=== PATIENT | female | born 1990 ===

== ENCOUNTER 2018-06-09 07:20 | Inpatient (IN) ==
[2018-06-11 07:54] VITALS: BP 120/62
== END 2018-06-11 14:25 | disposition home or self-care (01) | DRG 766 ==
LOC: N.LD 07:20 → N.OB 15:11
PROVIDERS: ADMIT Obstetrics & Gynecology; ATTEND Obstetrics & Gynecology
PROC: LDCSECT (ICD-10-PCS; 2018-06-09 12:00)

== ENCOUNTER 2020-11-06 07:41 | Inpatient (IN) ==
[2020-11-06 08:18] LABS: Basophils % 0.1 % (0.0-0.8); Eosinophils % 0.1 % (0.00-10.9); Immature Granulocytes % 0.5 %; Immature Granulocytes Absolute 0.08 #; Lymphocytes # 1.2 10*3/uL (1.4-4.0); Lymphocytes % 7.2 % (21.3-54.2); Mean Corpuscular HGB Conc 34.6 GM/DL (32-36); Mean Corpuscular Volume 79.8 FL (87-102); Mean Platelet Volume 8.8 FL (9.6-12.0); Monocytes % 5.9 % (1.7-12.7); Neutrophils % 86.2 % (38.7-73.9); Platelet Count 142 T/CUMM (130-400); Red Blood Count 3.26 MC/CUMM (3.8-5.5); Red Cell Distribution Width 13.8 % (9.3-17.3); White Blood Count 16.8 T/CUMM (4-12)
[2020-11-06 09:03] LABS: Bilirubin,Urine Negative (Negative); Blood, Urine Moderate mg/dL (Negative); Glucose,Urine (UA) 50 mg/dL (Negative); Ketones,Urine Negative (Negative); Mucus,Urine Occasional /LPF (Occasional); Nitrite,Urine Negative (Negative); Protein,Urine 100 MG/DL; RBC,Urine 67 /HPF (0-4); Squamous Epithelial Cell,Urine Occasional /HPF (0-10); Urine Appearance Slightly Hazy (Clear); Urine Color Amber (Yellow); Urine Specific Gravity 1.017 (1.001-1.035); WBC,Urine 8 /HPF (0-6)
[2020-11-06] MEDS: LACTATED RINGERS 1,000 ML IV SCH ×3 (09:03→22:58)
[2020-11-06 09:06] LABS: Barbiturates Screen,Urine Negative (Negative); Benzodiazepines Screen,Urine Negative (Negative); Cannabinoid Screen,Urine Negative (Negative); Opiate Screen,Urine Negative (Negative); Phencyclidine Screen,Urine Negative (Negative)
[2020-11-06] MEDS ORDERED: LACTATED RINGERS 250 ML IV ONE (09:33)
[2020-11-06] MEDS ORDERED: LACTATED RINGERS 500 ML IV PRN (09:33)
[2020-11-06] MEDS ORDERED: ACETAMINOPHEN 325 MG TABLET PO PRN (09:33)
[2020-11-06] MEDS: AMPICILLIN INJ 2,000 MG in SODIUM CHLORIDE 0.9% 100 ML IV SCH ×3 (10:04→21:58)
[2020-11-06] MEDS: MEPERIDINE 50 MG/1 ML VIAL IM PRN ×2 (10:05→16:10)
[2020-11-06] MEDS: ONDANSETRON 4 MG/2 ML VIAL IV PRN ×3 (10:06→23:11)
[2020-11-06 10:12] LABS: Alanine Aminotransferase < 9 U/L (13-56); Alkaline Phosphatase 54 U/L (45-117); Aspartate Amino Transferase 29 U/L (0-37); Blood Urea Nitrogen 6 MG/DL (7-18); Calcium 7.7 MG/DL (8.5-10.1); Estimated Glom Filtration Rate 147 ML/MIN; Glucose 139 MG/DL (74-106); Total Protein 6.1 G/DL (6.4-8.3)
[2020-11-06 10:54] LABS: HIV Antigen/Antibody Result Nonreactive (Nonreactive)
[2020-11-06 11:19] LABS: Hepatitis B Surface Ag Quant < 0.10 Index; Hepatitis B Surface Ag Result Negative (Negative)
[2020-11-06] MEDS ORDERED: SODIUM CHLORIDE 0.9% 1,000 ML IV PRN (20:00)
[2020-11-06] MEDS: MEPERIDINE 50 MG/1 ML VIAL IV PRN (23:31)
[2020-11-07] MEDS: AMPICILLIN INJ 2,000 MG in SODIUM CHLORIDE 0.9% 100 ML IV SCH ×4 (04:34→22:14)
[2020-11-07] MEDS ORDERED: miSOPROStoL 200 MCG TABLET VAG ONE (07:57)
[2020-11-07] MEDS ORDERED: miSOPROStoL 200 MCG TABLET VAG SCH (12:00)
[2020-11-07] MEDS: LACTATED RINGERS 1,000 ML IV SCH (12:38)
[2020-11-07] MEDS: miSOPROStoL 200 MCG TABLET VAG SCH ×3 (12:59→21:11)
[2020-11-07] MEDS: MEPERIDINE 50 MG/1 ML VIAL IV PRN ×2 (14:05→23:47)
[2020-11-07] MEDS: ONDANSETRON 4 MG/2 ML VIAL IV PRN ×2 (14:05→23:46)
[2020-11-08] MEDS: AMPICILLIN INJ 2,000 MG in SODIUM CHLORIDE 0.9% 100 ML IV SCH ×3 (04:14→16:56)
[2020-11-08] MEDS ORDERED: miSOPROStoL 200 MCG TABLET VAG ONE ×2 (06:00→09:58)
[2020-11-08] MEDS: MEPERIDINE 50 MG/1 ML VIAL IV PRN (10:55)
[2020-11-08] MEDS ORDERED: miSOPROStoL 200 MCG TABLET PO ONE (13:30)
[2020-11-08] MEDS ORDERED: OXYTOCIN/LR 20 UNIT/1,000 ML BAG IV SCH (14:30)
[2020-11-08 16:48] LABS: Basophils % 0.3 % (0.0-0.8); Eosinophils % 0.6 % (0.00-10.9); Hematocrit 28.5 VOL% (35.7-47.0); Hemoglobin 8.8 GM/DL (12.0-16.0); Immature Granulocytes % 0.3 %; Immature Granulocytes Absolute 0.02 #; Lymphocytes # 1.4 10*3/uL (1.4-4.0); Lymphocytes % 20.7 % (21.3-54.2); Mean Corpuscular HGB Conc 30.9 GM/DL (32-36); Mean Corpuscular Volume 87.4 FL (87-102); Mean Platelet Volume 9.7 FL (9.6-12.0); Neutrophils % 74.1 % (38.7-73.9); Platelet Count 147 T/CUMM (130-400); Red Blood Count 3.26 MC/CUMM (3.8-5.5); Red Cell Distribution Width 14.1 % (9.3-17.3); White Blood Count 6.7 T/CUMM (4-12)
[2020-11-08 16:57] LABS: PT Patient Result 10.7 SECS (9.8-11.9); Partial Thromboplastin Time 28.3 SECS (23.9-33.8)
[2020-11-08 17:04] LABS: Calcium 7.4 MG/DL (8.5-10.1); Total Protein 6.2 G/DL (6.4-8.3)
== END 2020-11-08 17:34 | disposition hospice, home (50) | DRG 831 ==
LOC: N.LDOUT 07:41 → N.LD 07:43
PROVIDERS: ADMIT Obstetrics & Gynecology; ATTEND Obstetrics & Gynecology